=== PATIENT | male | born 1965 | race Two or more races ===

== ENCOUNTER 2024-05-16 10:42 | Outpatient (REF) | payer OTHER, SELFPAY ==
--- NOTE | ~2024-05-16 | XR_ITS ---
EXAMINATION: XR CERVICAL SPINE CLINICAL INFORMATION: NECK PAIN COMPARISON: None available. TECHNIQUE: 2 views of the cervical spine were obtained. FINDINGS: Limited examination. Marginal osteophyte formation and decreased intervertebral disc space height at C5-6 and to a lesser extent C4-5 and C6-7 levels. No acute cortical disruption or gross malalignment. No lytic or blastic lesions. Upper airway is aerated. Poor visualization of the craniocervical junction. XR/XR cervical spine 2V IMPRESSION: Multilevel cervical spondylosis C4 C7 more conspicuous at C5-6. Electronically signed by: Reddy Hood MD 05/17/2024 07:15 AM BRIELLE
--- OUTSIDE RECORDS SUMMARY | 2024-05-16 11:51 | XMS_ITS ---
Author Organization [facility] Address [address] [place] [address] Care Team Providers Care Gate Cutter Name Role Phone RAVI APPLE Primary Care Provider [phone] Allergies Allergen (clinical drug ingredient) Drug/Non Drug Allergy documented on EMR Reaction Allergy Type Onset Date Status Morphine Derivatives (uncoded) Unknown Allergy Active Results Component Value Reference Range Notes CBC Reviewed date:03/09/2023 06:03:37 PM Interpretation: Performing Lab: Notes/Report: Original Ordering Provider: RAVI APPLE MD [employer], a member of [address] [address] [place] - Pilar Bruce MD WBC 9.8 4.8-10.8 x10-3/uL RBC 5.5 4.5-5.5 x10-6/uL HEMOGLOBIN 15.8 13.5-17.5 g/dL HEMATOCRIT 47.0 42-54 % MCV 85.9 79-98 fL MCH 28.9 27-32 pg MCHC 33.6 32-37 g/dL RDW 12.8 11-15 % PLT COUNT 279 130-400 x10-3/uL MEAN PLATELET VOLUME 10.7 7-11 fL NRBC % AUTO 0.0 <1 % NRBC # AUTO 0.00 <0.1 x10-3/uL MICROALB/CREAT RATIO, RANDOM Reviewed date:03/10/2023 04:48:08 PM Interpretation: Performing Lab: Notes/Report: Original Ordering Provider: RAVI APPLE MD [employer], a member of [address] [address] [place] - Pilar Bruce MD MICROALBUMIN, RANDOM 157.0 0.0-29.0 mg/L MICROALB/CRE RATIO RANDOM 65.1 0.0-30.0 mg/G CREATININE, RANDOM URINE 241 REASON FOR VISIT Follow-Up:, Last Labs: 10/12/22 Medications Medication SIG (Take, Route, Frequency, Duration) Notes Start Date End Date Status cloNIDine HCl 0.2 MG 1 tablet Orally Once a day for 90 TAKE 1 TABLET BY MOUTH TWICE DAILY 04/20/2011 Not-Taking metFORMIN HCl ER 500 MG 2 tablets with evening meal Orally Once a day for 90 days Active Meloxicam 15 MG 1 tablet Orally Once a day for 30 days Not-Taking LORazepam 0.5 MG 1 tablet as needed Orally Twice a day for 30 days 01/03/2019 Not-Taking metFORMIN HCl 850 MG TAKE 1 TABLET BY MOUTH EVERY DAY WITH A MEAL FOR 90 DAYS for 90 Active cloNIDine HCl 0.1 MG TAKE 1 TABLET BY MOUTH TWICE A DAY for 90 Active Simvastatin 20 MG TAKE 1 TABLET BY MOUTH EVERY DAY IN THE EVENING for 90 Active amLODIPine Besylate 10 MG TAKE 1 TABLET BY MOUTH EVERY DAY for 90 Active Farxiga 10 MG 1 tablet Orally Once a day for 90 days 03/09/2023 12/04/2023 Active Lisinopril-hydroCHL OROthiazide 20-12.5 MG TAKE 1 TABLET BY MOUTH EVERY DAY for 90 Active Mometasone Furoate 0.1 % 1 application Externally Once a day for 30 days needs refill 01/31/2019 Active Social History Tobacco Use: Social History Observation Description Date Details (start date - stop date) Never Smoker NA - NA Tobacco Use/Smoking Question Answer Notes Are you a nonsmoker Additional Findings: Tobacco Non-User Aggressive non-smoker Alcohol Screen (Audit-C) Question Answer Notes Did you have a drink containing alcohol in the p ast year? No Points 0 Interpretation Negative Tobacco use other than smoking: Question Answer Notes Are you an other tobacco user? No Section Notes: Working at [employer] on [employer] for 20 years. Aurora Raines ,my patient also works there. Living in [place] in his house with his Enrico Garcia 46 yrs She has 6 kids(Sahil 20 yr, Levon 24 yr and [place] 19 yr, Princess Estrrada , Princess Pilar) Only 2 at home now Levno and Sahil. Her aunt and uncle came from [place] 2 months ago and living with them. 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 Was 24 years to [place] and 7 yrs ago.Has a daughter Tamiko 29 yr who lives in [place], [place] and runs a [employer] store. with no children but cats. Talks to her on phone. Saw her 2 yrs ago. Has not been compliant with meds. I gave him a letter stating that his driving at work causes undue anxiety and stress and raises his BP. I gave the letter and it helped.Father last year at age 78 yr after CVA and CABG. Doesnt drink or smoke. #Hypertension 128/88 #Hyperlipidemia Elevated TC and LDL Restyarted simvastatin Will be compliant Will check lipids again #RAFIA Has severe anxiety on driving at work Will give a medical record with advise not to drive #Mild ED.Stable. Signatures Electronically signed by : Ravi Apple M.D.; Nov 20 2014 2:24PM EST (Author) Vital Signs Temperature 98.9 degrees Fahrenheit 03/09/20 23 Blood pressure systolic 126 mm Hg 03/09/20 23 Blood pressure diastolic 87 mm Hg 023 Heart Rate 90 /min 03/09/2023 Height 68.8975 in 03/09/2023 Weight 230 lbs 03/09/2023 BMI 34.06 kg/m2 03/09/2023 Oximetry 96 % 03/09/2023 Encounters Encounter Location Date Provider Diagnosis [address] [place] [address] 03/09/2023 RAVI APPLE Controlled type 2 diabetes mellitus without complication, without long-term current use of insulin E11.9 ; Hyperlipidemia, unspecified E78.5 and Essential (primary) hypertension I10 Assessments Encounter Date Diagnosis (ICD Code) Assessment Notes Treatment Notes Treatment Clinical Notes Section Notes 03/09/2023 Controlled type 2 diabetes mellitus without complication, without long-term current use of insulin (ICD-10 - E11.9) 10/27/22 Not taking metformin A1C 7.2 Will restart Metformin . May need Farxiga if not controlled Will send to [facility] for exam 03/09/23 A1C 7.2 Will start on Farxiga 10 mg 03/09/2023 Hyperlipidemia, unspecified (ICD-10 - E78.5) 03/09/2023 Essential (primary) hypertension (ICD-10 - I10) 10/27/22 Well controlled with meds Plan Of Treatment Medication Medication Name Sig Start Date Stop Date Notes metFORMIN HCl ER 500 MG 2 tablets with e vening meal Orally Once a day for 90 days cloNIDine HCl 0.1 MG TAKE 1 TABLET BY MO UTH TWICE A DAY for 90 Simvastatin 20 MG TAKE 1 TABLET BY JC TH EVERY DAY IN THE EVENING for 90 amLODIPine Besylate 10 MG TAKE 1 TABLET BY MOUTH EVERY DAY for 90 Farxiga 10 MG 1 tablet Orally Once a day for 90 days 03/09/2023 12/04/2023 Lisinopril-hydroCHLOROthiazi de 20-12.5 MG TAKE 1 TABLET BY MOUTH EVERY DAY for 90 Pending Test Test Name Order Date Hemoglobin A1c 03/09/2023 Lipid Panel 03/09/2023 CBC (COMPLETE BLOOD COUNT) 03/09/2023 Next Appt Details Follow Up: 3 Months, Reason: Progress Notes * Ric MUNGUIAoDOB: [birth year] (58 yo M)Acc No.[id number]:03/09/2023 Progress Notes Patient:?Ziyad Munguia Provider:?Ravi Apple MD :1965???Age:58 Y???Sex:Male Ricky e:03/09/2023 Address:[address] [place] [address] Subjective: * Chief Complaints: * ???Follow-Up:Last Labs: 10/12 * HPI: ???Constitutional:? 03/09/23 Looking well Upset as his [facility] insurance not accepted by [facility]. Doing well . Hs Sury cobbrot Paula bite people and laughs. Also the wild cardinal is still in the house. Did not go for vacation. Sister Neeta 60 yrs used to take care of mother and got paid Now she is without a job. Lives in [place] [place] [facility] [place] in low income housing . He stresses about her condition Stepdaughter Mario works in hospital and her works at [employer] and didnt give a job to his sister. meds reviewed and reconciled . has a yorki dog called Baby few months ago. ?10/27/22 Looking well Mpther on 09/11/22 at age 82 yr Lived in apartment in [facility] . Right knee is fine after steroid injection and Meloxicam use is prn Still working at [employer] . Off on Saturdays and Mondays. Son Sahil does [employer] and lives with brother in . Step daughter Nancy Myrick is a Pharmacist in [place]. Sury Mitchell is 4 yrs He speaks a lot of words. . Saw eye doctor . Wants to change to a new one [facility] . Meds reviewed and reconciled Compliant. Found a baby Red cardinal in mothers house and is taking care of it Named it [place]. went to [place] for a week last month. He did not go as he doesnt want to leave his parrot alone. ?06/03/22 Called for THV. Didnt come for OV as had Covid 2 days ago. He tested negative yesterday and has no symptoms Didnt go to work today Will test agai, Informed me last January he went to [facility] and had his right knee effusio drained and injected with steroids Provided good relief No the pain is comimg backs Wants some meds Will give melloxicam for 3 weeks Promised to get labs drawn by next weeks Weight stable Had Covid Vaccine but no boosters ?01/08/22 Came to the office Has swelling of right knee for past month Has some pain and stiffness . Needs med refills. Alberto Mitchell flew out and got it back. Clipped its wing Cost him $40. Mother had PCM put in for SSS. Still at [facility] No other complaints ?09/01/21 Came to the office Had Moderna vaccine Doesnt want to get booster. Working at [employer]. Mother is fine His sister is her MANAGER [employer]. Stepdaughter graduated last month from pharmacy school from [place] last month Went back to [place]. 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 Has degree from [place]. Son Sahil comes over on weekends. Stays with Levon. Loves his Sury Mitchell. Speaks some words. Bites. Likes fixing his 2 cars ?Had eye exam withg Dr Castellon Wants to see another doctor ?Compliant with medications. No new compliants ?04/07/21 Called him at home Has Mon and Tues off. Sitting and watching TV with his parrot Paula which flies around the house. Puts in cage when he goes to work. Has its wings clipped. Gets it checkup in [place]. ?Reviewed his labs HBA1C 6,7 On no meds. Has had no medical issue. Has Covid Moderna vaccine Will get the booster dose. Told him to register for online with [employer]. Working at [place] location. Enrico is fine and only dtr is at home and going to go pharmacy school . She has 5 children. Mother is 80 yr and is fine His sister is her MANAGER [employer]. Has 4 sisters and 2 brothers. ?12-26-20 WENT TO URGENT CARE Nov - NEEDS ANOTHER NOTE FOR WORK ?End of october was putting things away in the truck, lifting tote, got a pain went down right leg, waited a while went away. laying down could feel pain in right calf, got worse over a few weeks. One day was working wednesday, went home got out of the car pain in rght calf was severe could not stand on leg. went back to work and urgent care 12/19/20. Gave pt a week off, sent to PT for calf muscle and prescribed cyclobenzparine. Went to PT yesterday, off and back to work tomorrow. If he stands on leg too long will start hurting again. Usually works 715am-5. With pain can work 6 hour shifts. PT said she wants to see him 3-4 weeks. Use ice pack and exercises with leg. 12/04/20 [place] the office . was bored staying at home during the pandemic ? Bought a Sury hernandez for $600 from a breeder in [facility]. Named him Paula. Stepdaughter Pilar , her son and had Covid. Working at [employer] in [place] Known as Ray. Compliant with his meds. No travel. No new complaints. ?04/17/20 Called him at work Meds reviewed and reconciled . Compliant with meds. No Covid exposure. and stepson Weight is stable. States he will pay my bills before his next OV ?12/11/19 Called him at home. Working at [employer] on [facility] Known as Ray at work. Compliant with his medications Meds from [facility] in [place] Need esteban on Lisinopril ?Lives with in [facility]([place] and his stepson Sahil 22 yrs. 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 ?07/25/20 Medications reviewed and reconciled. ?Denies any complaints, has not seen any ER or urgent care since last time. Has not seen any other doctors since last august. Got first covid vaccine 3 weeks ago Mary, next dose in the 03 of August, no side effects. ?Still works at [employer] in [place]. Says they are really busy and even had to extend business hours. Says everyone is fixing their cars with the stimulus money. * ROS:?General/Constitutional:?Denies?Change in appetite.?Denies?Chills.?Denies?Fatigue.?Denies?Fever.?Denies?Headache.?Denies?L ightheadedness.?Denies?Sleep disturbance.?Denies?Weight gain.?Denies?Weight loss.?Respiratory:?Denies?Asthma,?denies.?Denies?Breathing pattern.?Denies?Breathing problems,?denies.?Denies?Chest pain.?Denies?Cough.?Denies?Hemoptysis.?Denies?Pain with inspiration.?Denies?Pneumonia,?denies.?Denies?Shortness of breath,?denies.?Denies?Shortness of breath at rest.?Denies?Shortness of breath with exertion.?Denies?Sputum production.?Denies?Tuberculosis,?denies.?Denies?Wheezing.?Cardiovascular:?Denies?Chest pain.?Denies?Chest pain at rest.?Denies?Chest pain with exertion.?Denies?Claudication.?Denies?Cyanosis.?Denies?Difficulty laying flat.?Denies?Dizziness.?Denies?Dyspnea on exertion.?Denies?Fluid accumulation in the legs.?Denies?Heart murmur,?denies.?Denies?Heart problems,?denies.?Denies?High blood pressure,?denies.?Denies?Irregular heartbeat,?denies.?Denies?Orthopnea.?Denies?Palpitations,?denies.?Denies?Rheumat ic fever,?denies.?Denies?Shortness of breath.?Denies?Weakness.?Denies?Weight gain.? * Medical History:? * Surgical History:?Surgical s titches to left palm Cut open a tendon Has mild numbness of index finger 2012 * Hospitalization/Major Diagno stic Procedure:? * Family History:?FamilyHx: No pertinent family history;.? Born in [place]. Came to [facility] at age 3 yr Revisited 3 times.Has cousins and aunts there. Has 2 brothers and 4 sisters. Father José Miguel Munguia at age 78 yr. , 4 yrs ago. [place] and in [place] 12 yrs Mother Kimberly 77 yr, lives in alone with her dog Visits her once a month. Her HCP and POA. Close to 2 brothers and 3 sisters Sees them regularly except youngest Sandee. * Social History:?Tobacco Use:?Tobacco Use/Smoking?Are you a?nonsmoker ?Additional Findings: Tobacco Non-User?Aggressive non-smoker ?Tobacco use other than smoking?Are you an other tobacco user??No ???Social_Migrated:?SocialHx: Marital History - Currently MarriedNever Drank AlcoholWorking Full TimeNever a smoker. ???Drugs/Alcohol:?Alcohol Screen (Audit-C)?Did you have a drink containing alcohol in the past year??No ?Points?0 ?Interpretation?Negative ?Do you smoke marijuana?: Denies. ?Do you drink alcohol?: none. ???Working at [employer] for 20 years. Aurora Raines ,my patient also works there. Living in [place] in his house with his Enrico Garcia 46 yrs She has 6 kids(Sahil 20 yr, Levon 24 yr and [place] 19 yr, Princess Estrrada , Princess Pilar) Only 2 at home now Levon and Sahil. Her aunt and uncle came from [place] 2 months ago and living with them. 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 Was 24 years to [facility] and 7 yrs ago.Has a daughter Tamiko 29 yr who lives in [place], [place] and runs a [employer]. with no children but cats. Talks to her on phone. Saw her 2 yrs ago. Has not been compliant with meds. I gave him a letter stating that his driving at work causes undue anxiety and stress and raises his BP. I gave the letter and it helped.Father last year at age 78 yr after CVA and CABG. Doesnt drink or smoke. #Hypertension 128/88 #Hyperlipidemia Elevated TC and LDL Restyarted simvastatin Will be compliant Will check lipids again #RAFIA Has severe anxiety on driving at work Will give a medical record with advise not to drive #Mild ED.Stable. Signatures Electronically signed by : Ravi Apple M.D.; Nov 20 2014 2:24PM EST (Author). * Medications:?TakingMometason e Furoate 0.1 % Ointment 1 application Externally Once a day, Notes: needs refillLisinopril-hydroCHLOROthiazide 20-12.5 MG Tablet TAKE 1 TABLET BY MOUTH EVERY DAY Simvastatin 20 MG Tablet TAKE 1 TABLET BY MOUTH EVERY DAY IN THE EVENING amLODIPine Besylate 10 MG Tablet TAKE 1 TABLET BY MOUTH EVERY DAY cloNIDine HCl 0.1 MG Tablet TAKE 1 TABLET BY MOUTH TWICE A DAY metFORMIN HCl ER 500 MG Tablet Extended Release 24 Hour 2 tablets with evening meal Orally Once a daymetFORMIN HCl 850 MG Tablet TAKE 1 TABLET BY MOUTH EVERY DAY WITH A MEAL FOR 90 DAYS Taking Mometasone Furoate 0.1 % Ointment 1 application Externally Once a day, Notes: needs refillTaking Lisinopril-hydroCHLOROthiazide 20-12.5 MG Tablet TAKE 1 TABLET BY MOUTH EVERY DAY Taking Simvastatin 20 MG Tablet TAKE 1 TABLET BY MOUTH EVERY DAY IN THE EVENING Taking amLODIPine Besylate 10 MG Tablet TAKE 1 TABLET BY MOUTH EVERY DAY Taking cloNIDine HCl 0.1 MG Tablet TAKE 1 TABLET BY MOUTH TWICE A DAY Taking metFORMIN HCl ER 500 MG Tablet Extended Release 24 Hour 2 tablets with evening meal Orally Once a dayTaking metFORMIN HCl 850 MG Tablet TAKE 1 TABLET BY MOUTH EVERY DAY WITH A MEAL FOR 90 DAYS Not-TakingMeloxicam 15 MG Tablet 1 tablet Orally Once a dayLORazepam 0.5 MG Tablet 1 tablet as needed Orally Twice a daycloNIDine HCl 0.2 MG Tablet 1 tablet Orally Once a day, Notes: TAKE 1 TABLET BY MOUTH TWICE DAILYMedication List reviewed and reconciled with the patientNot-Taking Meloxicam 15 MG Tablet 1 tablet Orally Once a dayNot-Taking LORazepam 0.5 MG Tablet 1 tablet as needed Orally Twice a dayNot-Taking cloNIDine HCl 0.2 MG Tablet 1 tablet Orally Once a day, Notes: TAKE 1 TABLET BY MOUTH TWICE DAILYMedication List reviewed and reconciled with the patient * Allergies:?Morphine Derivati ves Objective: * Vitals:?Temp:98.9 F, HR:90 / min, BP:126/87 mm Hg, Wt:230 lbs, BMI:34.06 Index, Ht: 68.8975 in, Oxygen sat %:96 %, Wt-k.33 kg. * ???Past Orders: Lab:MICROALB/CREAT RATIO, NDOKSANA * Order Date 10/12/2022 01/08/2022 09/01/2021 CREATININE, RANDOM URINE 378 (Ref Range: mg/dL) 229 (Ref Range: mg/dL) 133 (Ref Range: mg/dL) MICROALB/CRE RATIO RANDOM 17.8 (Ref Range: 0.0-30.0 mg/G) 82.9?H (Ref Range: 0.0-30.0 mg/G) 35.7?H (Ref Range: 0.0-30.0 mg/G) MICROALBUMIN, RANDOM 67.3?H (Ref Range: 0.0-29.0 mg/L) 190.0?H (Ref Range: 0.0-29.0 mg/L) 47.6?H (Ref Range: 0.0-29.0 mg/L) * Lab:LIPID PROFILE * Order Date 10/12/2022 04/08/2021 12/04/2020 CHOLESTEROL 144 (Ref Range: 0-200 mg/dL) 145 (Ref Range: 0-200 mg/dL) 155 (Ref Range: 0-200 mg/dL) HDL CHOLESTEROL 38?L (Ref Range: >40 mg/dL) 41 (Ref Range: >40 mg/dL) 42 (Ref Range: >40 mg/dL) LDL CALCULATED 60 (Ref Range: 0-100 mg/dL) 60 (Ref Range: 0-100 mg/dL) 81 (Ref Range: 0-100 mg/dL) TC-HDLC RATIO 3.8 (Ref Range: 0-4.4 mg/dL) 3.5 (Ref Range: 0-4.4 mg/dL) 3.7 (Ref Range: 0-4.4 mg/dL) TRIGLYCERIDES 231?H (Ref Range: 0-150 mg/dL) 221?H (Ref Range: 0-150 mg/dL) 163?H (Ref Range: 0-150 mg/dL) * Lab:GLYCOHEMOGLOBIN PROFILE * Order Date 10/12/2022 01/08/2022 09/01/2021 ESTIMATED AVERAGE GLUCOSE 160 (Ref Range: mg/dL) 148 (Ref Range: mg/dL) 154 (Ref Range: mg/dL) GLYCATED HEMOGLOBIN A1C 7.2?H (Ref Range: <6.5 %) 6.8?H (Ref Range: <6.5 %) 7.0?H (Ref Range: <6.5 %) * Lab:COMPREHENSIVE METABOLIC PANEL * Order Date 10/12/2022 01/08/2022 04/08/2021 ALBUMIN 3.7 (Ref Range: 3.2-5.0 G/dL) 3.8 (Ref Range: 3.2-5.0 G/dL) 4.0 (Ref Range: 3.2-5.0 G/dL) ALK PHOS 89 (Ref Range: 42-121 U/L) 90 (Ref Range: 42-121 U/L) 82 (Ref Range: 42-121 U/L) SGPT 65?H (Ref Range: 10-60 U/L) 67?H (Ref Range: 10-60 U/L) 59 (Ref Range: 10-60 U/L) ANION GAP 8 (Ref Range: 3-11) 6 (Ref Range: 3-11) 7 (Ref Range: 3-11) SGOT 48?H (Ref Range: 10-42 U/L) 46?H (Ref Range: 10-42 U/L) 29 (Ref Range: 10-42 U/L) BILI,TOTAL 0.5 (Ref Range: 0.0-1.4 mg/dL) 0.5 (Ref Range: 0.0-1.4 mg/dL) 0.5 (Ref Range: 0.0-1.4 mg/dL) BUN 12 (Ref Range: 5-25 mg/dL) 12 (Ref Range: 5-25 mg/dL) 13 (Ref Range: 5-25 mg/dL) CALCIUM 9.2 (Ref Range: 8.5-10.5 mg/dL) 9.7 (Ref Range: 8.5-10.5 mg/dL) 9.5 (Ref Range: 8.5-10.5 mg/dL) CHLORIDE 107 (Ref Range: 96-110 mmol/L) 110 (Ref Range: 96-110 mmol/L) 105 (Ref Range: 96-110 mmol/L) CO2 26 (Ref Range: 21-32 mmol/L) 28 (Ref Range: 21-32 mmol/L) 27 (Ref Range: 21-32 mmol/L) CREAT 0.82 (Ref Range: 0.7-1.3 mg/dL) 0.75 (Ref Range: 0.7-1.3 mg/dL) 0.70 (Ref Range: 0.7-1.3 mg/dL) GLOMERULAR FILTRATION RATE 102 (Ref Range: >60) 106 (Ref Range: >60) > 60 GLUCOSE 135?H (Ref Range: 70-100 mg/dL) 134?H (Ref Range: 70-100 mg/dL) 94 (Ref Range: 70-100 mg/dL) POTASSIUM 4.0 (Ref Range: 3.5-5.5 mmol/L) 4.0 (Ref Range: 3.5-5.5 mmol/L) 4.0 (Ref Range: 3.5-5.5 mmol/L) SODIUM 141 (Ref Range: 135-145 mEq/L) 144 (Ref Range: 135-145 mEq/L) 139 (Ref Range: 135-145 mEq/L) TOTAL PROTEIN 7.1 (Ref Range: 6.0-8.0 G/dL) 7.3 (Ref Range: 6.0-8.0 G/dL) 7.5 (Ref Range: 6.0-8.0 G/dL) * Lab:CBC * Order Date 10/12/2022 01/08/2022 04/07/2021 HEMATOCRIT 45.1 (Ref Range: 42-54 %) 44.4 (Ref Range: 42-54 %) 43.9 (Ref Range: 42-54 %) HEMOGLOBIN 14.9 (Ref Range: 13.5-17.5 g/dL) 14.7 (Ref Range: 13.5-17.5 g/dL) 14.5 (Ref Range: 13.5-17.5 g/dL) MCH 27.9 (Ref Range: 27-32 pg) 28.2 (Ref Range: 27-32 pg) 28.2 (Ref Range: 27-32 pg) MCHC 33.0 (Ref Range: 32-37 g/dL) 33.1 (Ref Range: 32-37 g/dL) 33.0 (Ref Range: 32-37 g/dL) MCV 84.5 (Ref Range: 79-98 fL) 85.2 (Ref Range: 79-98 fL) 85.2 (Ref Range: 79-98 fL) MEAN PLATELET VOLUME 10.1 (Ref Range: 7-11 fL) 9.7 (Ref Range: 7-11 fL) 9.5 (Ref Range: 7-11 fL) NRBC # AUTO DIFF 0.00 (Ref Range: <0.1 x10-3/uL) 0.00 (Ref Range: <0.1 x10-3/uL) 0.00 (Ref Range: <0.1 x10-3/uL) NRBC % AUTO DIFF 0.0 (Ref Range: <1 %) 0.0 (Ref Range: <1 %) 0.0 (Ref Range: <1 %) PLT COUNT 273 (Ref Range: 130-400 x10-3/uL) 273 (Ref Range: 130-400 x10-3/uL) 310 (Ref Range: 130-400 x10-3/uL) RBC 5.3 (Ref Range: 4.5-5.5 x10-6/uL) 5.2 (Ref Range: 4.5-5.5 x10-6/uL) 5.2 (Ref Range: 4.5-5.5 x10-6/uL) RDW 13.0 (Ref Range: 11-15 %) 13.3 (Ref Range: 11-15 %) 13.0 (Ref Range: 11-15 %) WBC 9.8 (Ref Range: 4.8-10.8 x10-3/uL) 9.3 (Ref Range: 4.8-10.8 x10-3/uL) 9.8 (Ref Range: 4.8-10.8 x10-3/uL) * Examination: ???General Examination: ?GENERAL APPEARANCE:?in no acute distress, well developed, well nourished.?HEAD:?normocephalic, atraumatic.?MUSCULOSKELETAL:?right lower leg, tender to deep palpation, no redness, no swelling, no change in gait, tenderness increases with increased mobility.?EXTREMITIES:?no clubbing, cyanosis, or edema.?NEUROLOGIC:?nonfocal, motor strength normal upper and lower extremities, sensory exam intact.? Assessment: * Assessment: 1.?Hyperlipidemia, unspecifi ed - E78.5?2.?Controlled type 2 diabetes mellitus without complication, without long-term current use of insulin - E11.9, 10/27/22 Not taking metformin A1C 7.2 Will restart Metformin . May need Farxiga if not controlled Will send to [facility] for exam03/09/23 A1C 7.2 Will start on Farxiga 10 mg?3.?Essential (primary) hypertension - I10, 10/27/22 Well controlled with meds? Plan: * Treatment: * Procedure Codes:? * Follow Up:?3 Months * Billing Information: * Visit Code:? 92405 Office Visit, Est Pt., Level 4. * Procedure Codes:? * Sign off status: Completed true * Provider:?Ravi Apple MD Date:?2022 Generated for Darien taylor/Kori/Clif on:?05/16/2024 11:51 AM EST History and Physical Notes * HPI (History of Present Illness) Category Sub-Category Detail Notes Category Not es Constitutional 03/09/23 Looking well Upset as his [facility] insurance not accepted by [facility]. Doing well . Hs Sury cobbbrice Mitcehll bite people and laughs. Also the wild cardinal is still in the house. Did not go for vacation. Sister eNeta 60 yrs used to take care of mother and got paid Now she is without a job. Lives in [facility] [place] [facility] in low income housing . He stresses about her condition Stepdaughter Mario works in hospital and her works at [employer] and didnt give a job to his sister. meds reviewed and reconciled . has a [employer] dog called Baby few months ago. 10/27/22 Looking well Mpther on 09/11/22 at age 82 yr Lived in apartment in [facility] . Right knee is fine after steroid injection and Meloxicam use is prn Still working at [employer] . Off on Saturdays and Mondays. Son Sahil does [employer] and lives with brother in . Step daughter Nancy Myrick is a Pharmacist in [place]. Sury Mitchell is 4 yrs He speaks a lot of words. . Saw eye doctor . Wants to change to a new one [facility] . Meds reviewed and reconciled Compliant. Found a baby Red cardinal in mothers house and is taking care of it Named it [place]. went to [place] for a week last month. He did not go as he doesnt want to leave his parrot alone. 06/03/22 Called for THV. Didnt come for OV as had Covid 2 days ago. He tested negative yesterday and has no symptoms Didnt go to work today Will test agai, Informed me last January he went to [facility] and had his right knee effusio drained and injected with steroids Provided good relief No the pain is comimg backs Wants some meds Will give melloxicam for 3 weeks Promised to get labs drawn by next weeks Weight stable Had Covid Vaccine but no boosters 01/08/22 Came to the office Has swelling of right knee for past month Has some pain and stiffness . Needs med refills. Parbrice Mitchell flew out and got it back. Clipped its wing Cost him $40. Mother had PCM put in for SSS. Still at [facility] No other complaints 09/01/21 Came to the office Had Moderna vaccine Doesnt want to get booster. Working at [employer]. Mother is fine His sister is her MANAGER TALENT ACQUISITION. Stepdaughter graduated last month from pharmacy school from [place] last month Went back to [place]. 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 Has degree from [place]. Son Sahil comes over on weekends. Stays with Levon. Loves his Denominational parrot Paula. Speaks some words. Bites. Likes fixing his 2 cars Had eye exam withg Dr Castellon Wants to see another doctor Compliant with medications. No new compliants 04/07/21 Called him at home Has Mon and Tues off. Sitting and watching TV with his parrot Paula which flies around the house. Puts in cage when he goes to work. Has its wings clipped. Gets it checkup in [place]. Reviewed his labs HBA1C 6,7 On no meds. Has had no medical issue. Has Covid Moderna vaccine Will get the booster dose. Told him to register for online with [facility]. Working at [employer]. Enrico is fine and only dtr is at home and going to go pharmacy school . She has 5 children. Mother is 80 yr and is fine His sister is her MANAGER TALENT ACQUISITION. Has 4 sisters and 2 brothers. 12-26-20 WENT TO URGENT CARE Nov - NEEDS ANOTHER NOTE FOR WORK End of october was putting things away in the truck, lifting tote, got a pain went down right leg, waited a while went away. laying down could feel pain in right calf, got worse over a few weeks. One day was working wednesday, went home got out of the car pain in rght calf was severe could not stand on leg. went back to work and urgent care 12/19/20. Gave pt a week off, sent to PT for calf muscle and prescribed cyclobenzparine. Went to PT yesterday, off and back to work tomorrow. If he stands on leg too long will start hurting again. Usually works 715am-5. With pain can work 6 hour shifts. PT said she wants to see him 3-4 weeks. Use ice pack and exercises with leg. 12/04/20 [place] the office . was bored staying at home during the pandemic Bought a Denominational parrot for $600 from a breeder in [facility]. Named him Paula. Stepdaughter Pilar , her son and had Covid. Working at [employer] in [place] Known as [place]. Compliant with his meds. No travel. No new complaints. 04/17/20 Called him at work Meds reviewed and reconciled . Compliant with meds. No Covid exposure. and stepson Weight is stable. States he will pay my bills before his next OV 12/11/19 Called him at home. Working at [employer] [facility] Known as Ray at work. Compliant with his medications Meds from [facility] in [place] Tala orellana on Lisinopril Lives with in [facility] and his stepson Sahil 22 yrs. 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 07/25/20 Medications reviewed and reconciled. Denies any complaints, has not seen any ER or urgent care since last time. Has not seen any other doctors since last august. Got first covid vaccine 3 weeks ago Moderna, next dose in the 03 of August, no side effects. Still works at [employer] in [place]. Says they are really busy and even had to extend business hours. Says everyone is fixing their cars with the stimulus money. Examination Category Sub-Category Detail Notes Category Not es General Examination GENERAL APPEARANCE: in no ac angeli distress, well developed, well nourished HEAD: normocephalic, atrau matic NEUROLOGIC: nonfocal, motor stre ngth normal upper and lower extremities, sensory exam intact EXTREMITIES: no clubbing, cyanosi s, or edema MUSCULOSKELETAL: right lower leg, ten lucretia to deep palpation, no redness, no swelling, no change in gait, tenderness increases with increased mobility
--- OUTSIDE RECORDS SUMMARY | 2024-05-16 11:51 | XMS_ITS | Patient Health Record ---
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 Role Phone RAVI APPLE Primary Care Provider Allergies Allergen (clinical drug ingredient) Drug/Non Drug Allergy documented on EMR Reaction Allergy Type Onset Date Status Morphine Derivatives (uncoded) Unknown Allergy Active Reason For Referral No Information Medications Medication SIG (Take, Route, Frequency, Duration) Notes Start Date End Date Status cloNIDine HCl 0.1 MG TAKE 1 TABLET BY MOUTH TWICE A DAY for 90 Active cloNIDine HCl 0.2 MG 1 tablet Orally Onc e a day for 90 TAKE 1 TABLET BY MOUTH TWICE DAILY 04/20/2011 Not-Taking metFORMIN HCl ER 500 MG 2 tablets with evening meal Orally Once a day for 90 days Active Simvastatin 20 MG TAKE 1 TABLET BY MOUTH EVERY DAY IN THE EVENING for 90 Active Meloxicam 15 MG 1 tablet Orally Once a day for 30 days Not-Taking amLODIPine Besylate 10 MG TAKE 1 TABLET BY MOUTH EVERY DAY for 90 Active LORazepam 0.5 MG 1 tablet as needed Orally Twice a day for 30 days 01/03/2019 Not-Taking Lisinopril-hydroCHLO ROthiazide 20-12.5 MG TAKE 1 TABLET BY MOUTH EVERY DAY for 90 Active metFORMIN HCl 850 MG TAKE 1 TABLET BY MOUTH EVERY DAY WITH A MEAL FOR 90 DAYS for 90 Active Mometasone Furoate 0.1 % 1 application Externally Once a day for 30 days needs refill 01/31/2019 Active Immunizations Vaccine Route Administration Date Status Comme nts Tdap IM Intramuscular 03/26/2011 Administered MIG_SI D-Immunization Date :26 Mar 2011 Social History Tobacco Use: Social History Observation [...] tobacco user? No Section Notes: Working at [employer] for 18 years. Aurora Raines ,my patient also works there. 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 Was 24 years to [facility] and 6 yrs ago.Has a daughter Tamiko 29 yr who lives in [place], [place] and runs a [employer] store. with no children but cats. Talks to her on phone. Saw her 3 yrs ago. Has not been compliant with meds. I gave him a letter stating that his driving at work causes undue anxiety and stress and raises his BP. I gave the letter and it helped. With [employer] for 18 years.Father last year at age 78 yr after [...] M.D.; Nov 20 2014 2:24PM EST (Author) Working at [employer] for 18 years. Aurora Raines ,my patient also works there. 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 Was 24 years to [employer] and 6 yrs ago.Has a daughter Tamiko 29 yr who lives in [place], [place] and runs a [employer] store. with no children but cats. Talks to her on phone. Saw her 3 yrs ago. Has not been compliant with meds. I gave him a letter stating that his driving at work causes undue anxiety and stress and raises his BP. I gave the letter and it helped. With [employer] for 18 years.Father last year at age 78 yr after [...] M.D.; Nov 20 2014 2:24PM EST (Author) Working at [employer] for 20 years. Aurora Olu ,my patient also works there. 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 Was 24 years to [employer] and 6 yrs ago.Has a daughter Tamiko 29 yr who lives in [place], [place] and runs a [employer] store. with no children but cats. Talks to her on phone. Saw her 3 yrs ago. Has not been compliant with meds. I gave him a letter stating that his driving at work causes undue anxiety and stress and raises his BP. I gave the letter and it helped. With [employer] for 18 years.Father last year at age 78 yr after [...] M.D.; Nov 20 2014 2:24PM EST (Author) Working at [employer] for 20 years. Aurora Valentineas ,my patient also works there. Living in [place] in his house with his Enrico Garcia 46 yrs She has 6 kids(Sahil 20 yr, Levon 24 yr and Princess Demorest 19 yr, Princess Estrrada , Princess Pilar) Only 2 at home now Levon and Sahil. Her aunt and uncle came from [place] 2 months ago and living with them. 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 Was 24 years to [facility] and 7 yrs ago.Has a daughter Tamiko 29 yr who lives in [place], [place] and runs a [employer] store. with no children but cats. Talks to her on phone. Saw her 3 yrs ago. Has not been compliant with [...] M.D.; Nov 20 2014 2:24PM EST (Author) Working at [employer] [address] [employer] for 20 years. Simon Olu ,my patient also works there. Living in [place] in his house with his Enrico Garcia 46 yrs She has 6 kids(Sahil 20 yr, Levon 24 yr and Princess Demorest 19 yr, Princess Estrrada , Princess Pilar) Only 2 at home now Levon and Sahil. Her aunt and uncle came from [place] 2 [place] ago and living with them. 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 Was 24 years to [facility] and 7 yrs ago.Has a daughter Tamiko 29 yr who lives in [place] and runs a [employer] store. with no children but cats. Talks to her on phone. Saw her 3 yrs ago. Has not been compliant with [...] M.D.; Nov 20 2014 2:24PM EST (Author) Working at [employer] for 20 years. Aurora Raines ,my patient also works there. Living in [place] in his house with his Enrico Garcia 46 yrs She has 6 kids(Sahil 20 yr, Levon 24 yr and Princess Demorest 19 yr, Princess Estrrada , Princess Pilar) Only 2 at home now Levon and Sahil. Her aunt and uncle came from [place] ago and living with them. 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 Was 24 years to [place] and 7 yrs ago.Has a daughter Tamiko 29 yr who lives in [place] and runs a [employer]. with no children but cats. Talks to her on phone. Saw her 3 yrs ago. Has not been compliant with [...] M.D.; Nov 20 2014 2:24PM EST (Author) Working at [employer] for 20 years. Aurora Raines ,my patient also works there. Living in [place] in his house with his Enrico Garcia 46 yrs She has 6 kids(Sahil 20 yr, Levon 24 yr and Princess Demorest 19 yr, Princess Estrrada , Princess Pilar) Only 2 at home now Levon and Sahil. Her aunt [place] uncle came from [place] ago and living with them. 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 Was 24 years to [facility] and 7 yrs ago.Has a daughter Tamiko 29 yr who lives in [place] and runs a [employer] store. with no children but cats. Talks to her on phone. Saw her 3 yrs ago. Has not been compliant with [...] Ravi Apple M.D.; Nov 20 2014 2:24PM BRIELLE (Author) Working at [employer] [employer] for 20 years. Aurora Olu ,my patient also works there. Living in [place] in his house with his Enrico Garcia 46 yrs She has 6 kids(Sahil 20 yr, Levon 24 yr and Princess Demorest 19 yr, Princess Estrrada , Princess Iplar) Only 2 at home now Levon and Sahil. Her aunt [place] uncle came from [place] ago and living with them. 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 Was 24 years to [facility] and 7 yrs ago.Has a daughter Tamiko 29 yr who lives in [place] and runs a [employer] store. with no children but cats. Talks to her on phone. Saw her 3 yrs ago. Has not been compliant with [...] M.D.; Nov 20 2014 2:24PM EST (Author) Working at [employer] for 20 years. Aurora Raines ,my patient also works there. Living in [place] in his house with his Enrico Garcia 46 yrs She has 6 kids(Sahil 20 yr, Levon 24 yr and Princess Demorest 19 yr, Princess Estrrada , Princess Pilar) Only 2 at home now Levon and Sahil. Her aunt [place] uncle came from [place] ago and living with them. 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 Was 24 years to [facility] and 7 yrs ago.Has a daughter Tamiko 29 yr who lives in [place] and runs a [employer]. with no children but cats. Talks to [...] M.D.; Nov 20 2014 2:24PM EST (Author) Working at [employer] for 20 years. Aurora Olu ,my patient also works there. Living in [place] in his house with his Enrico Garcia 46 yrs She has 6 kids(Sahil 20 yr, Levon 24 yr and Princess Demorest 19 yr, Princess Estrrada , Princess Pilar) Only 2 at home now Levon and Sahil. Her aunt [place] uncle came from [place] ago and living with them. 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 Was 24 years to [facility] and 7 yrs ago.Has a daughter Tamiko 29 yr who lives in [place] and runs a [employer] store. with no children but cats. Talks [...] Ravi Apple M.D.; Nov 20 2014 2:24PM BRIELLE (Author) Working at [employer] [address] [employer] for 20 years. Simonloc Raines ,my patient also works there. Living in [place] in his house with his Enrico Garcia 46 yrs She has 6 kids(Sahil 20 yr, Levon 24 yr and Princess Demorest 19 yr, Princess Estrrada , Princess Pilar) Only 2 at home now Levon and Sahil. Her aunt and uncle came from [place] ago and living with them. 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 Was 24 years to [facility] and 7 yrs ago.Has a daughter Tamiko 29 yr who lives in [place] and runs a [employer] store. with no children but cats. Talks [...] M.D.; Nov 20 2014 2:24PM EST (Author) Working at [employer] for 20 years. Aurora Raines ,my patient also works there. Living in [place] in his house with his Enrico Garcia 46 yrs She has 6 kids(Sahil 20 yr, Levon 24 yr and Princess Demorest 19 yr, Princess Estrrada , Princess Pilar) Only 2 at home now Levon and Sahil. Her aunt and uncle came from [place] ago and living with them. 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 Was 24 years to [facility] and 7 yrs ago.Has a daughter Tamiko 29 yr who lives in [place] and runs a [employer]. with no children but cats. Talks to [...] M.D.; Nov 20 2014 2:24PM EST (Author) Working at [employer] for 20 years. Aurora Olu ,my patient also works there. Living in [place] in his house with his Enrico Garcia 46 yrs She has 6 kids(Sahil 20 yr, Levon 24 yr and Princess Demorest 19 yr, Pricness Estrrada , Princess Pilar) Only 2 at home now Levon and Sahil. Her aunt and uncle came from [place] ago and living with them. 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 Was 24 years to [facility] and 7 yrs ago.Has a daughter Tamiko 29 yr who lives in [place] and runs a [employer] store. with no children but cats. Talks [...] M.D.; Nov 20 2014 2:24PM EST (Author) Working at [employer] [address] [employer] for 20 years. Aurora Raines ,my patient also works there. Living in [place] in his house with his Enrico Garcia 46 yrs She has 6 kids(Sahil 20 yr, Levon 24 yr and Princess Demorest 19 yr, Princess Estrrada , Princess Pilar) Only 2 at home now Levon and Sahil. Her aunt and uncle came from [place] ago and living with them. 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 Was 24 years to [facility] and 7 yrs ago.Has a daughter Tamiko 29 yr who lives in [place] and runs a [employer] store. with no children but cats. Talks [...] M.D.; Nov 20 2014 2:24PM EST (Author) Working at [employer] for 20 years. Aurora Raines ,my patient also works there. Living in [place] in his house with his Enrico Garcia 46 yrs She has 6 kids(Sahil 20 yr, Levon 24 yr and Princess Demorest 19 yr, Princess Estrrada , Princess Pilar) Only 2 at home now Levon and Sahil. Her aunt and uncle came from [place] ago and living with them. 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 Was 24 years to [employer] and 7 yrs ago.Has a daughter Tamiko 29 yr who lives in [place] and runs a [employer]. with no children but cats. Talks [...] M.D.; Nov 20 2014 2:24PM EST (Author) Working at [employer] for 20 years. Aurora Olu ,my patient also works there. Living in [place] in his house with his Enrico Garcia 46 yrs She has 6 kids(Sahil 20 yr, Levon 24 yr and Princess Demorest 19 yr, Princess Estrrada , Princess Pilar) Only 2 at home now Levon and Sahil. Her aunt and uncle came from [place] ago and living with them. 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 Was 24 years to [facility] and 7 yrs ago.Has a daughter Tamiko 29 yr who lives in [place] and runs a [employer]. with no children but cats. Talks [...] M.D.; Nov 20 2014 2:24PM EST (Author) Working at [employer] for 20 years. Aurora Valentineas ,my patient also works there. Living in [place] in his house with his Enrico Garcia 46 yrs She has 6 kids(Sahil 20 yr, Levon 24 yr and Princess Demorest 19 yr, Princess Estrrada , Princess Pilar) Only 2 at home now Levon and Sahil. Her aunt and uncle came from [place] ago and living with them. 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 Was 24 years to [facility] and 7 yrs ago.Has a daughter Tamiko 29 yr who lives in [place] and runs a [employer]. with no children but cats. Talks [...] M.D.; Nov 20 2014 2:24PM EST (Author) Working at [employer] for 20 years. Aurora Olu ,my patient also works there. Living in [place] in his house with his Enrico Garcia 46 yrs She has 6 kids(Sahil 20 yr, Levon 24 yr and Princess Demorest 19 yr, Princess Estrrada , Princess Pilar) Only 2 at home now Levon and Sahil. Her aunt and uncle came from [place] ago and living with them. 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 Was 24 years to [employer] and 7 yrs ago.Has a daughter Tamiko 29 yr who lives in [place] and runs a [employer]. with no children but cats. Talks to [...] M.D.; Nov 20 2014 2:24PM EST (Author) Working at [employer] for 20 years. Aurora Olu ,my patient also works there. Living in [place] in his house with his Enrico Garcia 46 yrs She has 6 kids(Sahil 20 yr, Levon 24 yr and Princess Demorest 19 yr, Princess Estrrada , Princess Pilar) Only 2 at home now Levon and Sahil. Her aunt and uncle came from [place] ago and living with them. 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 Was 24 years to [employer] and 7 yrs ago.Has a daughter Tamiko 29 yr who lives in [place] and runs a [employer]. with no children but cats. Talks [...] M.D.; Nov 20 2014 2:24PM EST (Author) Working at [employer] [address] [employer] for 20 years. Aurora Raines ,my patient also works there. Living in [place] in his house with his Enrico Garcia 46 yrs She has 6 kids(Sahil 20 yr, Levon 24 yr and Princess Demorest 19 yr, Princess Estrrada , Princess Pilar) Only 2 at home now Levon and Sahil. Her aunt and uncle came from [place] ago and living with them. 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 Was 24 years to [employer] and 7 yrs ago.Has a daughter Tamiko 29 yr who lives in [place] and runs a [employer]. with no children but cats. Talks [...] M.D.; Nov 20 2014 2:24PM EST (Author) Working at [employer] for 20 years. Aurora Olu ,my patient also works there. Living in [place] in his house with his Enrico Garcia 46 yrs She has 6 kids(Sahil 20 yr, Levon 24 yr and Princess Demorest 19 yr, Princess Estrrada , Princess Pilar) Only 2 at home now Levon and Sahil. Her aunt and uncle came from [place] ago and living with them. 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 Was 24 years to [facility] and 7 yrs ago.Has a daughter Tamiko 29 yr who lives in [place] and runs a [employer]. with no children but cats. Talks [...] M.D.; Nov 20 2014 2:24PM EST (Author) Working at [employer] for 20 years. Aurora Olu ,my patient also works there. Living in [place] in his house with his Enrico Garcia 46 yrs She has 6 kids(Sahil 20 yr, Levon 24 yr and Princess Demorest 19 yr, Princess Estrrada , Princess Pilar) Only 2 at home now Levon and Sahil. Her aunt and uncle came from [place] ago and living with them. 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 Was 24 years to [facility] and 7 yrs ago.Has a daughter Tamiko 29 yr who lives in [place] and runs a [employer]. with no children but cats. Talks [...] M.D.; Nov 20 2014 2:24PM EST (Author) Working at [employer] for 20 years. Aurora Raines ,my patient also works there. Living in [place] in his house with his Enrico Garcia 46 yrs She has 6 kids(Sahil 20 yr, Levon 24 yr and Princess Demorest 19 yr, Princess Estrrada , Princess Pilar) Only 2 at home now Levon and Sahil. Her aunt and uncle came from [place] ago and living with them. 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 Was 24 years to [employer] and 7 yrs ago.Has a daughter Tamiko 29 yr who lives in [place] and runs a [employer]. with no children but cats. Talks [...] M.D.; Nov 20 2014 2:24PM EST (Author) Working at [employer] for 20 years. Simon Olu ,my patient also works there. Living in [place] in his house with his Enrico Garcia 46 yrs She has 6 kids(Sahil 20 yr, Levon 24 yr and Princess Louise 19 yr, Princess Estrteria , Princess Pilar) Only 2 at home now Levon and Sahil. Her aunt and uncle came from [place] ago and living with them. 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 Was 24 years to [employer] and 7 yrs ago.Has a daughter Tamiko 29 yr who lives in [place] and runs a [employer]. with no children but cats. 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) Active confirmed well controlled Problem Dermatitis (078895884) Dermatitis, unspecified (L30.9) Active confirmed coming back on lower left leg, will refill mometasone furoate ointment which worked well for pt Problem 573438421691685 Effusion, right knee (M25.461) Active confirmed 02/08/22 Referral to ortho Problem Hyperlipidemia (20593342) Hyperlipidemia , unspecified (E78.5) Active confirmed continue on statin Problem Hypertension secondary to endocrine disorder (967192184) 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) Active confirmed Well controlled Has labile HTN Has BP machine at home but doesnt check it Problem 97694081 RAFIA (generalized anxiety disorder) (F41.1) Active confirmed Will give Lorazepam Problem 151496676 Obesity (BMI 30-39.9) (E66.9) Active confirmed Problem 756165295 Screening (Z13.9) Active confirmed Talked about colonoscopy Initially refused but convinced him To do in June 2016 Problem 45935259 Essential hypertension (I10) Active confirmed Problem General examination of patient (840457278) Routine medical exam (Z00.00) Active confirmed Problem 397639468 Elevated LFTs (R94.5) Active confirmed Takes ibuprofen Will stop and repeat LFT today Problem Microscopic hematuria (774379652) Microscopic hematuria (R31.29) Active confirmed 07/25/20 noted on urinalysis x3, pt asymptomatic, will also check psa and refer to urology Problem Screening colonoscopy (424228524) Encounter for screening colonoscopy (Z12.11) Active confirmed Had colonoscopy with Dr Boyer in May 2016 No polyps. FU in 2026 Problem 383894326 Controlled type 2 diabetes mellitus without complication, without long-term current use of insulin (E11.9) Active confirmed 10/27/22 Not taking metformin A1C 7.2 Will restart Metformin . May need Farxiga if not controlled Will send to [facility] for exam 03/09/23 A1C 7.2 Will start on Farxiga 10 mg Problem 076653641 Eczema of lower extremity (L30.9) Active confirmed Will treat with high potency steroid cream If not resolved will refer to dermatologists Problem 324453377 Exposure to COVID-19 virus (Z20.822) Active confirmed 06/03/22 sick and positive yesterday He tested negative Asymptomatic Will test again today Didnt go to work Had covid vaccine but no booster Plan Of Treatment Pending Test Test Name Order Date Hemoglobin A1c 03/09/2023 Urinalysis, Complete 04/14/2017 Lipid Panel 03/09/2023 Lipid Panel 06/03/2022 PSA Total+ Free 07/25/2020 Chem-Comprehensive 01/08/2022 Chem-Comprehensive 06/03/2022 Chem 7 (BUN, Cr, Lytes, Glu) 09/01/2021 CBC 06/03/2022 LIVER PANEL 07/16/2016 MICROALB/CREAT RATIO, RANDOM 06/03/2022 HgA1C 06/03/2022 CBC (COMPLETE BLOOD COUNT) 03/09/2023 HEMOGLOBIN A1C 01/08/2022 Future Test Test Name Order Date Urinalysis, Complete 11/14/2015 Lipid Panel 11/14/2015 CBC 11/14/2015 Chem-Comprehensive 11/14/2015 Lipid Panel 01/27/2023 Chem-Comprehensive 01/27/2023 CBC 01/27/2023 MICROALB/CREAT RATIO, RANDOM 01/27/2023 HEMOGLOBIN A1C 01/27/2023 Insurance Providers Payer Name Payer Address Payer Phone Subscriber Number Group Number Insured Name Patient Relationship to Insured Coverage Start Date Coverage End Date [facility] [address] [address] [place] [address] [id number] Ziyad Munguia Self - patient is the insured Medical (General) History Medical History History ICD Code Hypertension Hyperlipidemia Surgical History Surgery Date(Month/Year) Surgical stitches to left pa lm Cut open a tendon Has mild numbness of index finger 2012
[2024-05-16 13:35] LABS: Estimated Average Glucose 183 mg/dL; Hemoglobin A1C 243.8235 umol/L; Total Hemoglobin (HGBA1C) 3827.2206 umol/L
== END 2024-05-16 10:43 | disposition home or self-care (01) ==
LOC: HO.HMGCX 10:42
PROVIDERS: PCP Internal Medicine; Visit Provider Internal Medicine
DX: E11.9 Type 2 diabetes mellitus without complications (principal); M54.2 Cervicalgia
CPT/HCPCS: 36415; 72040; 83036

== ENCOUNTER → 2024-05-16 10:52 | Outpatient (BNV) | payer OTHER, SELFPAY | PROVIDERS: PCP Internal Medicine; Visit Provider Radiology Diagnostic Radiology | DX: M54.2 Cervicalgia (principal) | CPT/HCPCS: 72040 ==

== ENCOUNTER 2024-08-08 10:00 | Outpatient (AMB) | payer OTHER, SELFPAY ==
[2024-08-08 10:03] VITALS: BP 110/60; PULSE 113; BMI 35.2
--- NOTE | 2024-08-08 10:03 | MHC.OFFVIS ---
Vital Signs 08/08/24 10:03 Height 5 ft 7 in Weight 224 lb 13.944 oz BMI 35.2 BP 110/60 Blood Pressure Location Lt brachial Position Sitting Pulse 113 H Pulse Source Monitor Intake Visit Reasons: SCRIPT GIRL/Dr. Wren/Sunday FRAUSTOib Allergies morphine Allergy (Severe, Verified 08/08/24 10:11) rash Medication List - Last Reviewed 08/08/24 by Helen Diez amlodipine 10 mg PO DAILY apixaban (Eliquis) 5 mg PO BID lisinopril 20 mg PO DAILY metformin 500 mg PO BID simvastatin 20 mg PO BEDTIME HPI Comments Details: Ziyad is here for consultation regarding atrial fibrillation. He states that he supposed to the carpal tunnel surgery and hence had an EKG for that purpose which showed atrial fibrillation. Patient himself does not have any prior cardiac history. He also denies any complaints like angina or shortness of breath or palpitations or in fact anything cardiac sounding. He is on medications for diabetes, hypertension, dyslipidemia. For the last few days, he has been put on Eliquis by his own PCP. [facility], [facility] Medical History (Updated 08/08/24 @ 11:55 by Winston Anderson MD) Primary hypertension Diabetes Family History (Updated 08/08/24 @ 10:17 by Helen Diez) Mother Kidney failure Cancer Diabetes Father History of open heart surgery Social History (Updated 08/08/24 @ 10:17 by Helen Diez) Alcohol intake: never Patient Tobacco Use Status: Never used Tobacco Review of Systems Const Denies weakness ENT Denies dizziness Card Denies chest pain, Denies chest pain with activity, Denies syncope, Denies rapid heart rate, Denies pedal edema, Denies edema, Denies leg edema, Denies lightheadedness, Denies palpitations, Denies dyspnea, Denies dyspnea on exertion and Denies orthopnea Resp Denies cough, Denies dyspnea and Denies dyspnea on exertion GI Denies hematochezia and Denies change in stool character Musc Denies abnormal gait, Denies muscle cramps, Denies muscle weakness, Denies numbness, Denies radiating pain into limb and Denies tingling Neuro Denies abnormal gait, Denies dizziness, Denies syncope, Denies numbness, Denies tingling and Denies weakness Endo Denies palpitations Physical Exam Vital Signs: Last Vital Signs Pulse 113 H 08/08/24 10:03 BP 110/60 08/08/24 10:03 BMI result Body Mass Index 35.2 Const General: comfortable and no acute distress Orientation/consciousness: patient oriented x3 HEENT Other: Unremarkable Head: Yes normal to inspection Neck Neck: Yes normal visual inspection Chest Chest palpation & inspection: normal inspection of the chest Resp Auscultation: clear to auscultation bilaterally Cardio Palpation: normal PMI Heart sounds: S1 normal heart sound present, S2 normal heart sound present, no gallops, no murmurs and no rubs GI Palpation (GI): Soft to palpation Back/Spine/Pelvis Other: unremarkable Skin General skin exam: no rashes or lesions noted Neuro General: patient oriented x3 Extrem General: Yes normal to inspection Psych Mental Status: mental status grossly normal Office Procedures EKG Details: EKG with atrial fibrillation at a rate of 113/Min; cannot exclude old lateral infarct but could also be from body habitus. [id number], Complete Assessment & Plan Assessment & Plan (1) Atrial fibrillation with rapid ventricular response: Code(s): I48.91 - Unspecified atrial fibrillation Category: Medical (2) Primary hypertension: Code(s): I10 - Essential (primary) hypertension Category: Medical (3) Type 2 diabetes mellitus with unspecified complications: Code(s): E11.8 - Type 2 diabetes mellitus with unspecified complications Category: Medical Plan EKG today shows atrial fibrillation at a rate of 113/Min. Recent diagnosis but unknown duration. He can start beta-blockers for rate control. Advised him to hold off on amlodipine for a few days to avoid lowering blood pressure too much. Advised him to check home blood pressures. If necessary, we can resume amlodipine at a lower dose. He needs further workup with an echocardiogram for cardiac function as well as Holter monitor to assess the adequacy of rate control. Likely cardioversion at some point once we have more data. Plan discussed with patient and he agrees. Orders: Orders CA echo transthoracic complete Today I48.91 - Unspecified atrial fibrillation ECG 3 day holter monitor Today I48.91 - Unspecified atrial fibrillation Medications: New metoprolol succinate ER (Toprol XL) 50 mg PO DAILY 90 tabs 1RF I48.91 - Unspecified atrial fibrillation Coding Level of Care Code New Pt Level 4 (07451) Complex EM visit Add On G2211 Diagnoses Atrial fibrillation with rapid ventricular response I48.91 Primary hypertension I10 Type 2 diabetes mellitus with unspecified complications E11.8 CPT Codes EKG - CPT: 43380-[id number], Complete ([id number])
== END 2024-08-08 10:48 | disposition home or self-care (01) ==
LOC: HO.HCS 10:00
PROVIDERS: PCP Internal Medicine; Visit Provider Internal Medicine
DX: I48.91 Unspecified atrial fibrillation (principal); I10 Essential (primary) hypertension; E11.8 Type 2 diabetes mellitus with unspecified complications
CPT/HCPCS: 93010; 99204

== ENCOUNTER → 2024-08-08 10:00 | Outpatient (BNVA) | payer OTHER, SELFPAY | PROVIDERS: PCP Internal Medicine; Visit Provider Internal Medicine | DX: I48.91 Unspecified atrial fibrillation (principal); I10 Essential (primary) hypertension; E11.8 Type 2 diabetes mellitus with unspecified complications | CPT/HCPCS: 93005 ==

== ENCOUNTER → 2024-09-06 08:15 | Outpatient (REF) | payer OTHER, SELFPAY ==
--- NOTE | 2024-09-06 08:17 | CA_ITS ---
Transthoracic Echocardiogram Patient (Last, First, Middle): Ziyad Cardenas, Gender: Male Date of : 1965 Age: 59 Procedure Date: 09/06/2024 Procedure Type: Transthoracic Echocardiogram Location: OP Height: 170.18 cm Weight: 101.61 kg BSA: 2.12 m2 Heart Rate: bpm BP: 110 / 60 mmHg Bus System Operator: NICOLE Referring MD: Winston Anderson MD Symptoms: I48.91 - Unspecified atrial fibrillation Study Quality: Fair, contrast ECG Rhythm: Atrial Fibrillation Conclusions: - 1. Mildly reduced LV ejection fraction 45-50% 2. Mild biatrial enlargement 3. Mildly to moderately reduced RV systolic function 4. Cardiac valvular Dopplers within normal limits 5. Normal measured RV systolic pressure 6. Mildly dilated ascending aorta 7. No gross pericardial effusion Findings Procedure Information Contrast agent, definity, is being given per protocol without apparent complications. Left Ventricle Normal left ventricular cavity size. There is mildly increased left ventricular wall thickness. The left ventricular systolic function is mildly decreased. The visually estimated ejection fraction is between 45-50%. Diastolic function is indeterminate on the basis of available data. E/E prime ratio is <8, consistent with normal filling pressures. Right Ventricle Mildly increased right ventricular cavity size. There is mild to moderately decreased right ventricular systolic function. Atria The left atrium is mildly dilated. Interatrial shunt cannot be excluded. The right atrium is mildly dilated. Aortic Valve The aortic valve structure and function is likely normal. There is no aortic valve stenosis. There is no aortic valve regurgitation. Mitral Valve The mitral valve was not well visualized. There is trace mitral valve regurgitation. There is no mitral valve stenosis. Pulmonic Valve The pulmonic valve was not well visualized. Tricuspid Valve Likely normal tricuspid valve structure and function. There is trace tricuspid valve regurgitation. The right ventricular systolic pressure is normal. The right ventricular systolic pressure is 27 mmHg. Normal right atrial pressure. There is no evidence of pulmonary hypertension. Great Vessels The aorta was not well visualized. The pulmonary artery was not well visualized. There is mild dilatation of the ascending aorta measuring 4.10 cm. Venous The inferior vena cava is normal in size and collapses greater than 50% with inspiration. Pericardium/Pleural There is no evidence of pericardial effusion. Prior Study Comparison No prior study available for comparison. Measurements 2D Linear Measurements IVSd: 1.32 0.6-0.9/0.6-1.0 cm LVIDd: 4.53 3.9-5.3/4.2-5.9 cm LVIDd Index: 2.14 2.4-3.2/2.2-3.1 cm/m2 LVIDs: 3.55 2.0-3.6 cm LVPWd: 1.06 0.7-1.1 cm LA Diam: 3.00 2.7-3.8/3.0-4.0 cm LAIDs Index: 1.42 1.5-2.3 cm/m2 LV Mass: 246.46 67-162/88-224 g LV Mass Index: 116.25 43-95/49-115 g/m2 LVOT Diam: 2.30 3.0+(-)1.3 cm 2D Systolic Function EF 4C: 51.70 >55% EF 2C: 44.90 >55% EF BiP: 48.80 >55% Mitral Valve MV Pk E: 0.69 MV Decel Time: 156.00 E'Lateral: 10.50 E'Medial: 6.16 E/E' Med: 11.20 E/E' Lat: 6.60 PHT: 46.00 MVA PHT: 4.78 Decel Gove: 4.47 Aortic Valve AoV Pk Ángel: 0.90 AoV Mn Ángel: 0.66 AoV VTI: 0.18 AoV Pk Grad: 3.00 Aov Mn Grad: 2.00 MATI Cont.VTI: 3.35 LVOT LVOT Pk Ángel: 0.74 LVOT Mn Ángel: 0.48 LVOT VTI: 0.14 LVOT Pk Grad: 2.00 LVOT Mn Grad: 1.00 LVOT Diam: 2.30 LVOT Area: 4.15 Diastolic Function MV Pk E: 0.69 E'Medial: 6.16 E/E' Med: 11.20 E' Laterial: 10.50 E/E' Lat: 6.60 Tricuspid Valve TR Pk Ángel: 2.16 TR Pk Grad: 19.00 RA Press: 8.00 RVSP: 27.00 Great Vessels Aorta Sinus of Valsalva: 4.34 2.0-3.[address] Ridge: 3.20 1.7-3.4 cm Ao Asc: 4.10 2.1-3.4 cm Updated in Other Vendor System with Status of Final Geo Remy MD electronically signed on 09/07/2024 12:02:12 PM with status of Final
--- NOTE | 2024-09-06 08:17 | HM_ITS ---
* Total monitoring time 3 days. * Underlying rhythm is atrial fibrillation. * Average ventricular rate 99/Min. * About 30% of the time, rate gradient 100/Min. * No significant pauses. * No patient markers or diary events. MTDD
== END ==
LOC: HO.CARD 08:15
PROVIDERS: PCP Internal Medicine; Visit Provider Internal Medicine
DX: I48.91 Unspecified atrial fibrillation (principal)
CPT/HCPCS: 93242; 93306; Q9957

== ENCOUNTER → 2024-09-06 08:17 | Outpatient (BNV) | payer OTHER, SELFPAY | PROVIDERS: PCP Internal Medicine; Visit Provider Internal Medicine Cardiovascular Disease | DX: I48.91 Unspecified atrial fibrillation (principal) | CPT/HCPCS: 93244; 93306 ==

== ENCOUNTER 2024-09-22 11:17 | Day surgery (SDC) | payer OTHER, SELFPAY ==
--- NOTE | 2024-09-20 13:47 | HO.ANESPROP2 ---
HPI - Anesthesia Eval Consult details Narrative: 59yo M for Cardioversion Eliquis for afib [facility] Active Problems Active Problems: All Active Problems Type 2 diabetes mellitus with unspecified complications (Acute) Primary hypertension (Acute) Atrial fibrillation with rapid ventricular response (Acute) Past Medical History Medical History Primary hypertension Diabetes Family History Family History Mother Kidney failure Cancer Diabetes Father History of open heart surgery Surgical History Surgical History Hx of colonoscopy Social History Social History Household Members Other:: son/girlfriend Are you a primary lead caregiver to a significant other at home: No Do you presently have visiting nurse or other home services: No Alcohol intake: never Patient Tobacco Use Status: Never used Tobacco Have you been hit, kicked, punched, or otherwise hurt by someone within the past year? If so, by whom?: No Are you DNR?: No Advance Directives: No Advance Directives Information Provided: Yes Poor oral hygiene: No Meds Allergies Allergy/AdvReac Type Severity Reaction Status Date / Time morphine Allergy Severe rash Verified 09/22/24 11:47 Home Medications ?Medication ?Instructions ?Recorded ?Confirmed ?Last Taken ?Type amlodipine 10 mg tablet 10 mg PO DAILY 08/08/24 09/22/24 Unknown History apixaban 5 mg tablet (Eliquis) 5 mg PO BID 08/08/24 09/22/24 Unknown History lisinopril 20 mg tablet 20 mg PO DAILY 08/08/24 09/22/24 Unknown History metformin 500 mg tablet 500 mg PO BID 08/08/24 09/22/24 Unknown History simvastatin 20 mg tablet 20 mg PO BEDTIME 08/08/24 09/22/24 Unknown History Exam Narrative Narrative: ECHO 08/2024 Conclusions: - 1. Mildly reduced LV ejection fraction 45-50% 2. Mild biatrial enlargement 3. Mildly to moderately reduced RV systolic function 4. Cardiac valvular Dopplers within normal limits 5. Normal measured RV systolic pressure 6. Mildly dilated ascending aorta 7. No gross pericardial effusion Assessment and Plan Assessment Anesthesia Assessment: Chart Reviewed
[2024-09-22 11:58] VITALS: BMI 35.4
[2024-09-22 11:59] VITALS: BP 114/80; PULSE 94; RESP 18; TEMP 36.8; O2SAT 96
[2024-09-22] MEDS: Lactated Ringers 1,000 ML 100 ML IVCONT (12:01)
[2024-09-22] MEDS: Apixaban 5 MG TABLET PO (12:10)
[2024-09-22 12:18] LABS: Glucose, Whole Blood 106 mg/dL (60-115)
--- NOTE | 2024-09-22 13:00 | HO.ANESPROP2 ---
[facility] Active Problems Active Problems: All Active Problems (Updated 08/08/24 @ 11:55 by Winston Anderson MD) Type 2 diabetes mellitus with unspecified complications (Acute) Atrial fibrillation with rapid ventricular response (Acute) Primary hypertension (Acute) Past Medical History Medical History Primary hypertension Diabetes Functional capacity: independent ambulation Family History Family History Mother Kidney failure Cancer Diabetes Father History of open heart surgery Family history of problems with anesthesia: No Surgical History Surgical History Hx of colonoscopy History of Problems with Anesthesia: No Social History Social History Household Members Other:: son/girlfriend Are you a primary direct care counselor to a significant other at home: No Do you presently have visiting nurse or other home services: No Alcohol intake: never Patient Tobacco Use Status: Never used Tobacco Have you been hit, kicked, punched, or otherwise hurt by someone within the past year? If so, by whom?: No Are you DNR?: No Advance Directives: No Advance Directives Information Provided: Yes Poor oral hygiene: No Meds Allergies Allergy/AdvReac Type Severity Reaction Status Date / Time morphine Allergy Severe rash Verified 09/22/24 11:47 Active Medications: Current Medications Lactated Ringer's (Lr) 1,000 mls @ 100 mls/hr IVCONT .Q10H GIOVANNY Last Admin: 09/22/24 12:01 Dose: 100 mls/hr Home Medications ?Medication ?Instructions ?Recorded ?Confirmed ?Last Taken ?Type amlodipine 10 mg tablet 10 mg PO DAILY 08/08/24 09/22/24 Unknown History apixaban 5 mg tablet (Eliquis) 5 mg PO BID 08/08/24 09/22/24 Unknown History lisinopril 20 mg tablet 20 mg PO DAILY 08/08/24 09/22/24 Unknown History metformin 500 mg tablet 500 mg PO BID 08/08/24 09/22/24 Unknown History simvastatin 20 mg tablet 20 mg PO BEDTIME 08/08/24 09/22/24 Unknown History Exam Height,Weight and Vital Signs: Height 5 ft 7 in Weight 102.5 kg Last Vital Signs Temp 98.2 F 09/22/24 11:59 Pulse 94 09/22/24 11:59 Resp 18 09/22/24 11:59 BP 114/80 09/22/24 11:59 Pulse Ox 96 09/22/24 11:59 O2 Del Method Room Air 09/22/24 11:59 Pertinent Lab Results Pertinent Lab Results: Laboratory Tests 09/22/24 12:14 POC Glucose 106 Airway Mallampati Class: III TM Dist: >3cm Neck ROM: Full Heart: irreg. Lungs: CTA Assessment and Plan Assessment Anesthesia Assessment: Anesthesia Plan Discussed Final Anesthetic Review Family History of Problems with Anesthesia: No History of Problems with Anesthesia: No NPO: Yes ASA Class: III Final Preanesthetic Review: Meds/Allgs Chart Reviewed, Consent Obtained/Reviewed and Anes Risks/Benef Reviewed Patient Risk: Low Procedure Risk: Low Anesthetic Plan Anesthetic Plan: GA Disposition: Standard PACU
--- NOTE | 2024-09-22 13:03 | HO.POSTANES ---
Post Anesthesia Evaluation Post Anesthesia Evaluation Vital Signs: Vital Signs Temp Pulse Resp BP Pulse Ox O2 Del Method 09/22/24 11:59 98.2 F 94 18 114/80 96 Room Air Anesthesia: General Mental Status: Awake Pain Control: Satisfactory Nausea/Vomiting: None Hydration: Adequate Anesthesia-Related Issues: No Anes. Related Issues
--- NOTE | 2024-09-22 13:10 | MHC.SHP ---
Pre-Procedural Eval Section A - 24 Hr Update-Section A only Date of Service: 09/22/24 The patient is an INPATIENT: No Changes since office visit: No Cold of Flu in the past 2 weeks, No New Medical Problems, No Changes in Medication and No Patient answered all questions The patient has been examined within 24 hours of the surgical procedure. The History & Physical has been completed within 30 days and I have reviewed it.: Yes Section B - Complete if H&P > 30 days Chief Complaint: Unspecified atrial fibrillation Details of Present Illness: Recently detected atrial fibrillation with rapid rate. No overt symptoms. Relevant Family History (Specify if Yes): No Relevant Social History: None Present Medications: see Short Stay Collaborative assessment Medical History: No relevant PMH Allergies: Allergies Allergy/AdvReac Type Severity Reaction Status Date / Time morphine Allergy Severe rash Verified 09/22/24 11:47 Review of Systems Review of Systems Comment: 10 system review -ve. Exam Exam Comment: HEENT- normal Cardiac- normal heart sounds, no murmurs Resp- normal Abd- soft Neuro- normal Skin- intact Psych- normal Plan I have reviewed the history and physical and performed a pertinent physical examination on my patient. No changes have occurred unless specified. Time Spent With Patient Time: Total time managing care of this patient today ____ minutes.
--- NOTE | 2024-09-22 13:17 | HO.CARDIVERS ---
Cardioversion Procedure Note Cardioversion Date of Procedure: 09/22/2024 Indication for Procedure: Atrial fibrillation rapid ventricular response Pre-Op Diagnosis: Atrial fibrillation Post-Op Diagnosis: Atrial fibrillation Consent: Informed consent obtained Procedure: After informed consent was obtained, patient was taken to the PACU. The patient was then positioned appropriately. The cardioversion pads were placed in anteroposterior position. Once under anesthesia, 120 joules of synchronized shock was administered. Briefly converted sinus but then went back into atrial fibrillation. Re-attempted with 150 joules. Remained in atrial fibrillation. Complications: None Impression: Cardioversion not successful Recommendations: Check labs including TSH, LFTs. Then Amiodarone loading followed by repeat cardioversion.
[2024-09-22 13:45] VITALS: BP 108/74; PULSE 94; RESP 16; TEMP 36.1; O2SAT 96
[2024-09-22 13:50] VITALS: BP 109/80; PULSE 88; RESP 18; O2SAT 97
[2024-09-22 13:55] VITALS: BP 103/75; PULSE 95; RESP 20; O2SAT 98
[2024-09-22 14:00] VITALS: BP 112/76; PULSE 87; RESP 18; O2SAT 96
[2024-09-22 14:15] VITALS: BP 113/89; PULSE 80; RESP 18; TEMP 36.4; O2SAT 96
== END 2024-09-22 15:18 | disposition home or self-care (01) ==
PROVIDERS: PCP Internal Medicine; Visit Provider Internal Medicine
PROC: 5A2204Z Restoration of Cardiac Rhythm, Single (ICD-10-PCS; principal; 2024-09-22 13:00)
DX: I48.91 Unspecified atrial fibrillation (principal); Z79.01 Long term (current) use of anticoagulants; I10 Essential (primary) hypertension; E78.5 Hyperlipidemia, unspecified; E11.8 Type 2 diabetes mellitus with unspecified complications; Z79.84 Long term (current) use of oral hypoglycemic drugs; Z79.899 Other long term (current) drug therapy; Z88.5 Allergy status to narcotic agent
CPT/HCPCS: 82947; 92960; J2003; J2704

== ENCOUNTER → 2024-09-22 11:17 | Outpatient (BNV) | payer OTHER, SELFPAY | PROVIDERS: PCP Internal Medicine; Visit Provider Internal Medicine | DX: I48.91 Unspecified atrial fibrillation (principal) | CPT/HCPCS: 92960 ==

== ENCOUNTER 2024-10-31 09:47 | Outpatient (REF) | payer OTHER, SELFPAY ==
[2024-10-31 11:01] LABS: Alanine Aminotransferase 27 U/L (0-40); Albumin Level 4.2 g/dL (3.5-5.0); Alkaline Phosphatase 95 U/L (39-117); Aspartate Amino Transferase 25 U/L (5-37); Total Protein 7.7 g/dL (6.5-8.0)
== END 2024-10-31 09:48 | disposition home or self-care (01) ==
LOC: HO.LAB 09:47
PROVIDERS: Visit Provider Internal Medicine
DX: I48.91 Unspecified atrial fibrillation (principal)
CPT/HCPCS: 36415; 80076; 84443

== ENCOUNTER 2024-11-07 08:58 | Outpatient (AMB) | payer OTHER, SELFPAY ==
--- NOTE | 2024-11-07 09:20 | A.OFFVIS_ITS ---
Vital Signs 11/07/24 09:21 Height 5 ft 7 in Weight 225 lb 12.054 oz BMI 35.4 BP 110/64 Blood Pressure Location Lt brachial Position Sitting Pulse 104 H Pulse Source Monitor Intake Visit Reasons: follow up cardio version [employer] Specialist Required: No Accompanied by: Self / Same As Patient Allergies morphine Allergy (Severe, Verified 09/22/24 11:47) rash Medication List - Last Reconciled 11/07/24 by Winston Anderson MD amlodipine 10 mg PO DAILY apixaban (Eliquis) 5 mg PO BID lisinopril 20 mg PO DAILY metformin 500 mg PO BID metoprolol succinate ER (Toprol XL) 50 mg PO DAILY simvastatin 20 mg PO BEDTIME HPI Comments Details: Ziyad returns for follow-up regarding atrial fibrillation. To recall, he was supposed to go for carpal tunnel surgery and a preoperative EKG had shown atrial fibrillation. Patient has got no prior cardiac history and no symptoms. However, he has got risk factors including diabetes, hypertension, dyslipidemia. He underwent cardioversion but was successful. He states he is mostly feeling okay but has noticed some tiredness. Remains on anticoagulation. [facility] Medical History Primary hypertension Diabetes Surgical History Hx of colonoscopy Family History Mother Kidney failure Cancer Diabetes Father History of open heart surgery Social History Household Members Other:: son/girlfriend Are you a primary ocular care technician to a significant other at home: No Do you presently have visiting nurse or other home services: No Alcohol intake: never Patient Tobacco Use Status: Never used Tobacco Review of Systems Const Denies chills, Denies fatigue, Denies fever(s), Denies frequent falls, Denies weakness, Denies weight gain and Denies weight loss ENT Denies dizziness Card Denies chest pain, Denies leg edema, Denies lightheadedness, Denies palpitations, Denies dyspnea and Denies dyspnea on exertion Resp Denies cough, Denies dyspnea and Denies dyspnea on exertion GI Denies hematochezia Musc Denies abnormal gait, Denies muscle weakness, Denies numbness, Denies radiating pain into limb and Denies tingling Neuro Denies abnormal gait, Denies dizziness, Denies frequent falls, Denies numbness, Denies tingling and Denies weakness Endo Denies fatigue and Denies palpitations Physical Exam Vital Signs: Last Vital Signs Pulse 104 H 11/07/24 09:21 BP 110/64 11/07/24 09:21 BMI result Body Mass Index 35.4 Const General: comfortable and no acute distress Orientation/consciousness: patient oriented x3 HEENT Other: Unremarkable Head: Yes normal to inspection Neck Neck: Yes normal visual inspection Chest Chest palpation & inspection: normal inspection of the chest Resp Auscultation: clear to auscultation bilaterally Cardio Palpation: normal PMI Heart sounds: S1 normal heart sound present, S2 normal heart sound present, no gallops, no murmurs and no rubs GI Palpation (GI): Soft to palpation Back/Spine/Pelvis Other: unremarkable Skin General skin exam: no rashes or lesions noted Neuro General: patient oriented x3 Extrem General: Yes normal to inspection Psych Mental Status: mental status grossly normal Office Procedures EKG Details: EKG with atrial fibrillation at a rate of 104/Min; leftward axis. [id number], Complete Assessment & Plan Assessment & Plan (1) Atrial fibrillation with rapid ventricular response: Code(s): I48.91 - Unspecified atrial fibrillation Category: Medical (2) Cardiomyopathy: Code(s): I42.9 - Cardiomyopathy, unspecified Category: Medical (3) Primary hypertension: Code(s): I10 - Essential (primary) hypertension Category: Medical (4) Type 2 diabetes mellitus with unspecified complications: Code(s): E11.8 - Type 2 diabetes mellitus with unspecified complications Category: Medical Plan Recent cardioversionx2 shocks unsuccessful. Hence we will plan on loading with Amiodarone and re-attempt cardioversion. We discussed about this today. Eventually, refer to EP for ablation. Amiodarone can be used for short term. Continue anticoagulation without changes. He is also on some beta-blockers that may be continued. In the echocardiogram, LVEF is 45-50% with mild biatrial enlargement. Mild cardiomyopathy most likely from atrial fibrillation but consider ischemic workup with a coronary CTA once he is back in sinus rhythm. Discussion Notes I discussed with the patient the nature of atrial fibrillation and the importance of restoring normal heart rhythm to prevent complications such as congestive heart failure and cardiomegaly. We reviewed the previous unsuccessful cardioversion attempt and the rationale for the new medication regimen to improve the heart's responsiveness. The patient was informed about the scheduled follow-up cardioversion and the necessity of continuing blood thinners to mitigate the risk of thromboembolic events. Patient was informed and verbally consented to the use of an ambient scribe for clinic note documentation during this visit. Medications: New amiodarone followed by 200mg daily. 400 mg (2 x 200 mg) PO BID 28 tabs 0RF amiodarone Start after loading dose. 200 mg PO DAILY 90 tabs 1RF Patient Instructions: - Take Amiodarone as instructed. - Continue taking blood thinners daily. - Attend the scheduled follow-up cardioversion in approximately three weeks. - Contact your insurance company for any prescription cost issues. Coding Level of Care Code Est Pt Level 4 (74688) Complex EM visit Add On G2211 Diagnoses Atrial fibrillation with rapid ventricular response I48.91 Cardiomyopathy I42.9 Primary hypertension I10 Type 2 diabetes mellitus with unspecified complications E11.8 CPT Codes EKG - CPT: 61677-[id number], Complete ([id number])
[2024-11-07 09:21] VITALS: BP 110/64; PULSE 104; BMI 35.4
== END 2024-11-07 10:01 | disposition home or self-care (01) ==
LOC: HO.HCS 08:59
PROVIDERS: Visit Provider Internal Medicine
DX: I48.91 Unspecified atrial fibrillation (principal); I42.9 Cardiomyopathy, unspecified; I10 Essential (primary) hypertension; E11.8 Type 2 diabetes mellitus with unspecified complications
CPT/HCPCS: 93010; 99214

== ENCOUNTER → 2024-11-07 08:58 | Outpatient (BNVA) | payer OTHER, SELFPAY | PROVIDERS: Visit Provider Internal Medicine | DX: I48.91 Unspecified atrial fibrillation (principal) | CPT/HCPCS: 93005 ==

== ENCOUNTER → 2024-11-24 11:12 | Day surgery (SDC) | payer OTHER, SELFPAY ==
[2024-11-21 15:25] VITALS: BMI 35.4
--- NOTE | 2024-11-22 15:17 | HO.ANESPROP2 ---
HPI - Anesthesia Eval Consult details Narrative: 59 yr old male for cardioversion s/p cardioversion 08/2024 On eliquis & amiodorone for Afib PMFSH Active Problems Active Problems: All Active Problems Cardiomyopathy (Acute) Type 2 diabetes mellitus with unspecified complications (Acute) Atrial fibrillation with rapid ventricular response (Acute) Primary hypertension (Acute) Past Medical History Medical History (Updated 11/21/24 @ 15:18 by Violeta Barnhart RN) Cardiomyopathy Atrial fibrillation Primary hypertension Diabetes Family History Family History Mother Kidney failure Cancer Diabetes Father History of open heart surgery Family history of problems with anesthesia: No Surgical History Surgical History Hx of colonoscopy History of Problems with Anesthesia: No Social History Social History Household Members Other:: son/girlfriend Are you a primary primary care provider to a significant other at home: No Do you presently have visiting nurse or other home services: No Alcohol intake: never Patient Tobacco Use Status: Never used Tobacco Meds Allergies Allergy/AdvReac Type Severity Reaction Status Date / Time morphine Allergy Severe rash Verified 09/22/24 11:47 Home Medications ?Medication ?Instructions ?Recorded ?Confirmed ?Last Taken ?Type amlodipine 10 mg tablet 10 mg PO DAILY 08/08/24 11/21/24 Unknown History apixaban 5 mg tablet (Eliquis) 5 mg PO BID 08/08/24 11/21/24 Unknown History lisinopril 20 mg tablet 20 mg PO DAILY 08/08/24 11/21/24 Unknown History metformin 500 mg tablet 500 mg PO BID 08/08/24 11/21/24 Unknown History simvastatin 20 mg tablet 20 mg PO BEDTIME 08/08/24 11/21/24 Unknown History Exam Height,Weight and Vital Signs: Height 5 ft 7 in Weight 102.512 kg Narrative Narrative: ECHO 08/2024 Conclusions: - 1. Mildly reduced LV ejection fraction 45-50% 2. Mild biatrial enlargement 3. Mildly to moderately reduced RV systolic function 4. Cardiac valvular Dopplers within normal limits 5. Normal measured RV systolic pressure 6. Mildly dilated ascending aorta 7. No gross pericardial effusion Assessment and Plan Final Anesthetic Review Family History of Problems with Anesthesia: No History of Problems with Anesthesia: No
--- NOTE | 2024-11-24 11:47 | ECG_ITS ---
Test Reason : pre cardioversion Blood Pressure : */* mmHG Vent. Rate : 54 BPM Atrial Rate : 54 BPM P-R Int : 226 ms QRS Dur : 112 ms QT Int : 534 ms P-R-T Axes : 40 -35 1 degrees QTcB Int : 506 ms Sinus bradycardia with 1st degree A-V block Left axis deviation Low voltage QRS Prolonged QT Abnormal ECG No previous ECGs available Referred By: Rosalinda Ngo Electronically Signed By: ROSALINDA NGO
--- NOTE | 2024-11-24 12:23 | PC.NURSE ---
at 1145 pt brought barney preop. monitor applied right away due to regular pulse check. sinus bradycardia noted. md notified, ekg done and confirmed sb with 1st degree block. md notiofied and procedure cancelled. med instructions per md given to pt, and d/c'd. office will contact him.
== END ==
LOC: HO.SSS 11:13
PROVIDERS: PCP Internal Medicine; Visit Provider Internal Medicine
DX: I48.19 Other persistent atrial fibrillation (principal); Z53.09 Procedure and treatment not carried out because of other contraindication; R00.1 Bradycardia, unspecified; I44.0 Atrioventricular block, first degree; I10 Essential (primary) hypertension; Z79.01 Long term (current) use of anticoagulants
CPT/HCPCS: 93005

== ENCOUNTER → 2024-11-24 11:47 | Outpatient (BNV) | payer OTHER, SELFPAY | PROVIDERS: PCP Internal Medicine; Visit Provider Internal Medicine | DX: I44.0 Atrioventricular block, first degree (principal); R00.1 Bradycardia, unspecified | CPT/HCPCS: 93010 ==

== ENCOUNTER → 2024-12-01 08:56 | Outpatient (BNVA) | payer OTHER, SELFPAY | PROVIDERS: PCP Internal Medicine; Visit Provider Internal Medicine | DX: R00.1 Bradycardia, unspecified (principal); Z79.01 Long term (current) use of anticoagulants ==

== ENCOUNTER 2024-12-21 09:16 | Outpatient (AMB) | payer OTHER, SELFPAY ==
[2024-12-21 09:31] VITALS: BP 118/60; PULSE 56; BMI 36.6
--- NOTE | 2024-12-21 09:31 | MHC.OFFVIS ---
Vital Signs 12/21/24 09:31 Height 5 ft 7 in Weight 233 lb 11.04 oz BMI 36.6 BP 118/60 Blood Pressure Location Lt brachial Position Sitting Pulse 56 Pulse Source Monitor Intake Visit Reasons: 3 week f/up Allergies morphine Allergy (Severe, Verified 09/22/24 11:47) rash Medication List - Last Reconciled 12/21/24 by Winston Anderson MD amiodarone 400 mg (2 x 200 mg) PO BID amiodarone 200 mg PO DAILY amlodipine 10 mg PO DAILY apixaban (Eliquis) 5 mg PO BID 90 days lisinopril 20 mg PO DAILY metformin 500 mg PO BID metoprolol succinate ER (Toprol XL) 50 mg PO DAILY simvastatin 20 mg PO BEDTIME HPI Comments Details: Ziyad returns for follow-up regarding atrial fibrillation. To recall, he was supposed to go for carpal tunnel surgery and a preoperative EKG had shown atrial fibrillation. He did not have any overt symptoms but because of atrial fibrillation at a young age he underwent cardioversion. This was unsuccessful. He was then loaded with Amiodarone and that got him back to normal sinus rhythm. Overall, he states he feels fine. He cannot say if this is a difference between him being in atrial fibrillation or sinus rhythm. Denies any angina or in fact any cardiac symptoms at all. [facility] Medical History (Updated 12/21/24 @ 10:03 by Winston Anderson MD) Cardiomyopathy Atrial fibrillation Primary hypertension Diabetes Surgical History Hx of colonoscopy Family History Mother Kidney failure Cancer Diabetes Father History of open heart surgery Social History Household Members Other:: son/girlfriend Are you a primary health care consultant to a significant other at home: No Do you presently have visiting nurse or other home services: No Alcohol intake: never Patient Tobacco Use Status: Never used Tobacco Review of Systems Const Denies weakness ENT Denies dizziness Card Denies chest pain, Denies chest pain with activity, Denies syncope, Denies rapid heart rate, Denies pedal edema, Denies edema, Denies leg edema, Denies lightheadedness, Denies palpitations, Denies dyspnea, Denies dyspnea on exertion and Denies orthopnea Resp Denies cough, Denies dyspnea and Denies dyspnea on exertion GI Denies hematochezia and Denies change in stool character Musc Denies abnormal gait, Denies muscle cramps, Denies muscle weakness, Denies numbness, Denies radiating pain into limb and Denies tingling Neuro Denies abnormal gait, Denies dizziness, Denies syncope, Denies numbness, Denies tingling and Denies weakness Endo Denies palpitations Physical Exam Vital Signs: Last Vital Signs Pulse 56 12/21/24 09:31 BP 118/60 12/21/24 09:31 BMI result Body Mass Index 36.6 Const General: comfortable and no acute distress Orientation/consciousness: patient oriented x3 HEENT Other: Unremarkable Head: Yes normal to inspection Neck Neck: Yes normal visual inspection Chest Chest palpation & inspection: normal inspection of the chest Resp Auscultation: clear to auscultation bilaterally Cardio Palpation: normal PMI Heart sounds: S1 normal heart sound present, S2 normal heart sound present, no gallops, no murmurs and no rubs GI Palpation (GI): Soft to palpation Back/Spine/Pelvis Other: unremarkable Skin General skin exam: no rashes or lesions noted Neuro General: patient oriented x3 Extrem General: Yes normal to inspection Psych Mental Status: mental status grossly normal Office Procedures EKG Details: EKG with sinus bradycardia at 56/Min; low-voltage QRS complexes; leftward axis; [place] [id number], Complete Assessment & Plan Assessment & Plan (1) Paroxysmal atrial fibrillation: Code(s): I48.0 - Paroxysmal atrial fibrillation Category: Medical Plan: Currently, in sinus rhythm and on amiodarone. We discussed about long-term side effects from Amiodarone. At his young age, would prefer not to continue it for too long and hence after the current supply runs out he may stop it. Beyond this, we discussed about EP referral and ablation but patient is not too keen on it. Hence we may just keep him on beta-blockers. If necessary, we can try a different agent like flecainide for the future. Continue anticoagulation as he has got multiple other issues including diabetes and hypertension. (2) Cardiomyopathy: Code(s): I42.9 - Cardiomyopathy, unspecified Category: Medical Plan: In the echocardiogram, LVEF is 45-50% with mild biatrial enlargement. Could be tachycardia induced. We will repeat in a few months as he is back to normal sinus rhythm. Should have improved. If not, consider coronary CTA. (3) Encounter for monitoring amiodarone therapy: Code(s): Z51.81 - Encounter for therapeutic drug level monitoring; Z79.899 - Other [facility] (current[facility] drug therapy Category: Medical Plan Discussion Notes During the consultation, I discussed with the patient the management of atrial fibrillation, emphasizing the risks associated with long-term use of amiodarone, such as thyroid and lung complications. We explored the option of ablation as a more permanent solution to address the arrhythmia, explaining the procedure and its potential benefits. Additionally, I highlighted the importance of continuing Eliquis to prevent stroke, noting that stopping the medication could increase the risk of cerebrovascular events. Patient was informed and verbally consented to the use of an ambient scribe for clinic note documentation during this visit. Orders: Orders ECG 3 day holter monitor 3 Months I48.91 - Unspecified atrial fibrillation [place] Echo Limited 3 Months I42.9 - Cardiomyopathy, unspecified Medications: Discontinued amiodarone followed by 200mg daily. Discontinued Reason: Doctor's Order 400 mg (2 x 200 mg) PO BID 28 tabs 0RF amiodarone Start after loading dose. Discontinued Reason: Doctor's Order 200 mg PO DAILY 90 tabs 1RF Patient Instructions: - Continue taking Eliquis as prescribed to prevent stroke. - Monitor for any symptoms of atrial fibrillation and report them immediately. - Consider discussing the option of ablation with a specialist for long-term management of atrial fibrillation. - Schedule a follow-up appointment in March to reassess heart rhythm and function. Coding Level of Care Code Est Pt Level 4 (10034) Complex EM visit Add On G2211 Diagnoses Paroxysmal atrial fibrillation I48.0 Cardiomyopathy I42.9 Encounter for monitoring amiodarone therapy Z51.81; Z79.899 CPT Codes EKG - CPT: 19746-[id number], Complete ([id number])
== END 2024-12-21 10:00 | disposition home or self-care (01) ==
LOC: HO.HCS 09:16
PROVIDERS: PCP Internal Medicine; Visit Provider Internal Medicine
DX: I48.0 Paroxysmal atrial fibrillation (principal); I42.9 Cardiomyopathy, unspecified; Z51.81 Encounter for therapeutic drug level monitoring; Z79.899 Other long term (current) drug therapy
CPT/HCPCS: 93010; 99214

== ENCOUNTER → 2024-12-21 09:16 | Outpatient (BNVA) | payer OTHER, SELFPAY | PROVIDERS: PCP Internal Medicine; Visit Provider Internal Medicine | DX: I48.0 Paroxysmal atrial fibrillation (principal) | CPT/HCPCS: 93005 ==

== ENCOUNTER → 2025-03-26 09:39 | Outpatient (REF) | payer OTHER, SELFPAY ==
--- NOTE | 2025-03-26 09:44 | CA_ITS ---
Transthoracic Echocardiogram Patient (Last, First, Middle): Ziyad Cardenas, Gender: M Date of : 1965 Age: 60 Procedure Date: 03/26/2025 Procedure Type: Transthoracic Echocardiogram Location: OP Height: 170. 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 Limited per order ECG Rhythm: Sinus Conclusions: - The left ventricular systolic function is normal. The visually estimated ejection fraction is between 55-60%. Findings Procedure Information Contrast agent, definity, is being given per protocol without apparent complications. Left Ventricle Normal left ventricular cavity size. There is normal left ventricular wall thickness. The left ventricular systolic function is normal. The visually estimated ejection fraction is between 55-60%. There is no evidence of regional wall motion abnormalities. Prior Study Comparison Changes noted compared to prior study dated: 09/06/2024. LVEF improved. Measurements 2D Linear Measurements IVSd: 0.94 0.6-0.9/0.6-1.0 cm LVIDd: 4.69 3.9-5.3/4.2-5.9 cm LVIDd Index: 2.17 2.4-3.2/2.2-3.1 cm/m2 LVIDs: 3.03 2.0-3.6 cm LVPWd: 0.97 0.7-1.1 cm LV Mass: 190.49 67-162/88-224 g LV Mass Index: 88.19 43-95/49-115 g/m2 LVOT Diam: 2.10 3.0+(-)1.3 cm 2D Systolic Function EF 4C: 61.90 >55% EF 2C: 63.40 >55% EF BiP: 61.80 >55% LVOT LVOT Pk Ángel: 1.06 LVOT Mn Ángel: 0.73 LVOT VTI: 0.20 LVOT Pk Grad: 4.00 LVOT Mn Grad: 2.00 LVOT Diam: 2.10 LVOT Area: 3.46 Updated in Other Vendor System with Status of Final Winston Andesron MD electronically signed on 03/26/2025 12:35:49 PM with status of Final
== END ==
LOC: HO.CARD 09:39
PROVIDERS: Visit Provider Internal Medicine
DX: I48.91 Unspecified atrial fibrillation (principal); I42.9 Cardiomyopathy, unspecified
CPT/HCPCS: 93242; 93308; Q9957

== ENCOUNTER → 2025-03-26 09:44 | Outpatient (BNV) | payer OTHER, SELFPAY | PROVIDERS: Visit Provider Internal Medicine | DX: I42.9 Cardiomyopathy, unspecified (principal) | CPT/HCPCS: 93308; 93321 ==